=== PATIENT | female | born 1940 | race Caucasian/White ===

== ENCOUNTER 2017-01-06 15:55 | Observation (INO) | payer MEDICARE ==
[2017-01-06 16:26] LABS: #Basophils 0.1 thou/uL (0.0-0.2); #Eosinphils 0.2 thou/uL (0.0-0.7); #Lymphocytes 3.1 thou/uL (1.20-3.40); #Monocytes 0.8 thou/uL (0.11-0.59); #Neutrophils 6.3 thou/uL (1.40-6.50); %Eosinophils 1.8 % (0.0-10.0); %Lymphocytes 29.5 % (21.0-51.0); %Monocytes 7.6 % (0.0-10.0); Hematocrit 32.7 % (36.0-47.0); Mean Platelet Volume 5.9 fL (7.4-10.4); Red Blood Cell (RBC) Count 3.52 mill/uL (4.20-5.40); White Blood Cell (WBC) Count 10.5 thou/uL (4.8-10.8)
[2017-01-06 16:40] LABS: ALT (SGPT) 8 U/L (8-55); AST (SGOT) 11 U/L (5-34); Alkaline Phosphatase 75 U/L (40-150); Anion Gap 14 mmol/L (10-20); BUN (Urea Nitrogen) 48 mg/dL (9.8-20.1); Bilirubin, Total 0.5 mg/dL (0.2-1.2); Calc. Creatinine Clearance 0 mL/min (70-130); Calcium 8.8 mg/dL (7.8-10.44); Carbon Dioxide 18 mmol/L (23-31); Chloride 105 mmol/L (98-107); Estimated GFR-MDRD 23; Globulin 2.9 g/dL (2.4-3.5); Magnesium 2.3 mg/dL (1.6-2.6); Phosphorus 4.7 mg/dL (2.3-4.7); Protein, Total 6.4 g/dL (6.0-8.3)
[2017-01-06 16:44] LABS: Troponin I 0.011 ng/mL (< 0.028)
[2017-01-06 16:56] LABS: Bilirubin Negative (Negative); Blood, Urine Negative (Negative); Glucose, Urine (Dipstick) 500 mg/dL (Negative); Ketone, Urine Negative (Negative); Nitrite Negative (Negative); Protein, Urine (Dipstick) Negative (Neg-Trace); Urobilinogen 0.2 mg/dL (0.2-1.0)
[2017-01-06] MEDS ORDERED: Dextrose 50% Abboject 50 ML SYRINGE SLOW IVP SCH (17:00)
[2017-01-06] MEDS ORDERED: Dextrose 50% Abboject 50 ML SYRINGE ONE (17:15)
--- NOTE | 2017-01-06 17:49 | RAD ---
AP VIEW OF THE CHEST 01/06/17 INDICATION: History of DKA. COMPARISON: Prior chest radiograph dated 09/19/11. FINDINGS: There is a chronic appearing ununited fracture involving the left proximal humerus. There is mild ca rdiomegaly. The lungs are clear. No pleural effusion or pneumothorax evident. Chronic lung changes a re similar appearing. IMPRESSION: No definite acute cardiopulmonary abnormality. POS: H
[2017-01-06] MEDS ORDERED: HYDROcodone/Acetaminophen 5/325 mg Tablet PO PRN ×2 (21:04)
[2017-01-06] MEDS ORDERED: Ondansetron ODT 4 MG TAB SL PRN (21:04)
[2017-01-06] MEDS ORDERED: Ondansetron HCl/PF 4 MG/2 ML Vial IVP PRN (21:04)
[2017-01-06] MEDS ORDERED: Acetaminophen 325 MG TAB PO PRN (21:04)
[2017-01-06 21:50] VITALS: BMI 20.2
[2017-01-07] MEDS ORDERED: Dextrose 5% in Water 1,000 ML IV PRN (00:36)
[2017-01-07] MEDS ORDERED: Dextrose 50% Abboject 50 ML SYRINGE SLOW IVP PRN (00:36)
--- NOTE | 2017-01-07 05:57 | CON ---
NEPHROLOGY CONSULTATION NOTE DATE OF CONSULTATION: 01/06/2017 CONSULTING PHYSICIAN: Dr. Yan. REASON FOR CONSULTATION: Acute kidney injury. REASON FOR ADMISSION: Abnormal labs. HISTORY OF PRESENT ILLNESS: This is a 76-year-old lady who is a white female with history of type 2 diabetes and chronic kidney disease who came to the hospital with abnormal labs. The patient had o utpatient lab done with worsening hyperkalemia and worsening renal function and was sent to the ER a nd repeat labs also showed hyperkalemia. She has been seen here, she has been feeling better. Alize steward has been running 300s-400s lately and she was to start on insulin. She was found to have potassi um of 6, sodium of 123 and creatinine of 2.45. No fever or chills. No UTI symptoms. No chest pain or palpitation reported. PAST MEDICAL HISTORY: Positive for: 1. Type 2 diabetes. 2. CKD. 3. Hypertension. 4. Coronary disease. 5. Cardiac stent. 6. Anemia. 7. Dementia. 8. Depression. 9. Glaucoma. 10. Gastroesophageal reflux disease. 11. Hiatal hernia. 12. Diverticulitis. 13. Constipation. 14. Irritable bowel syndrome. 15. Osteoarthritis. 16. Headache. 17. Dysphagia. 18. Hearing problem. PAST SURGICAL HISTORY: Tubal ligation, coronary artery stents, EGD and colonoscopy. HOME MEDICATIONS: Aspirin, Lipitor, Plavix, Lomotil, Trulicity which was stopped recently, folic ac id, gabapentin, glipizide, levothyroxine 50 mcg daily, lisinopril, , metoprolol, omeprazole and Januvia. ALLERGIES: No known drug allergies. SOCIAL HISTORY: No smoking, alcohol or drug abuse. FAMILY HISTORY: No history of any kidney disease. REVIEW OF SYSTEMS: The following complete review of systems was negative, unless otherwise mentione d in the HPI or below: Constitutional: Weight loss or gain, ability to conduct usual activities. Skin: Rash, itching. Eyes: Double vision, pain. ENT/Mouth: Nose bleeding, neck stiffness, pain, tenderness. Cardiovascular: Palpitations, dyspnea on exertion, orthopnea. Respiratory: Shortness of breath, wheezing, cough, hemoptysis, fever or night sweats. Gastrointestinal: Poor appetite, abdominal pain, heartburn, nausea, vomiting, constipation, or diar katya. Genitourinary: Urgency, frequency, dysuria, nocturia. Musculoskeletal: Pain, swelling. Neurologic/Psychiatric: Anxiety, depression. Allergy/Immunologic: Skin rash, bleeding tendency. PHYSICAL EXAMINATION: GENERAL: This is a well-built female in no apparent distress. VITAL SIGNS: Temperature is 97.7, pulse 60, respirations 16 and blood pressure 139/55. HEENT: Atraumatic, normocephalic. Oral mucosa is dry. NECK: Supple. No masses. CARDIOVASCULAR: S1 and S2 heard. Rate and rhythm regular. RESPIRATORY: Clear. ABDOMEN: Soft. MUSCULOSKELETAL: No tenderness. No edema . DERMATOLOGIC: No skin rash. NEUROLOGIC: Alert and awake. PSYCHIATRIC: Mood and affect are normal. LABORATORY DATA: Hemoglobin is 11.1. Potassium 6.0, sodium 127 and BUN 49. Creatinine is 2.4 and baseline is around 2.1. ASSESSMENT AND PLAN: 1. Acute kidney injury, most likely from volume depletion. Continue hydration. We will check ryan l ultrasound. 2. Hyperkalemia. Limit potassium in the diet, hold lisinopril and correct glucose. 3. Hyponatremia. Correct glucose. Continue IV fluids. 4. Acidosis. No ketosis present. 5. Anemia, mild. 6. Edema, controlled. 7. Hypertension, stable. 8. Recommend IV hydration. Check renal ultrasound and follow glucose closely. Thank you for the consultation.
[2017-01-07] MEDS ORDERED: Levothyroxine Sodium 50 MCG TAB PO SCH (06:00)
[2017-01-07 06:06] LABS: #Basophils 0.1 thou/uL (0.0-0.2); #Eosinphils 0.4 thou/uL (0.0-0.7); #Lymphocytes 2.7 thou/uL (1.20-3.40); #Monocytes 0.7 thou/uL (0.11-0.59); #Neutrophils 4.3 thou/uL (1.40-6.50); %Basophils 0.9 % (0.0-1.0); %Eosinophils 5.2 % (0.0-10.0); %Lymphocytes 33.3 % (21.0-51.0); %Monocytes 8.4 % (0.0-10.0); Hematocrit 33.9 % (36.0-47.0); Mean Platelet Volume 6.3 fL (7.4-10.4); Red Blood Cell (RBC) Count 3.66 mill/uL (4.20-5.40); White Blood Cell (WBC) Count 8.2 thou/uL (4.8-10.8)
[2017-01-07 06:18] LABS: Anion Gap 15 mmol/L (10-20); BUN (Urea Nitrogen) 46 mg/dL (9.8-20.1); Calc. Creatinine Clearance 19 mL/min (70-130); Calcium 9.2 mg/dL (7.8-10.44); Carbon Dioxide 19 mmol/L (23-31); Chloride 105 mmol/L (98-107); Estimated GFR-MDRD 23
[2017-01-07] MEDS: HumaLOG 300 UNITS/3 ML VIAL SC PRN ×2 (06:42→12:26)
[2017-01-07] MEDS ORDERED: Sodium Chloride 0.9% 1,000 ML IV SCH ×2 (08:30→10:15)
--- NOTE | 2017-01-07 08:36 | PDOC.FM ---
- Subjective Subjective: Patient with no complaints this morning. Denies n/v/d, cp, sob. Afebrile, VSS - Objective MAR Reviewed: Yes Vital Signs & Weight: Vital Signs (12 hours) Temp Pulse Resp BP Pulse Ox 01/07/17 07:40 97.7 F 68 18 151/69 H 97 01/07/17 05:00 97.9 F 63 14 147/63 H 97 01/06/17 23:34 97.8 F 67 16 121/70 97 01/06/17 21:01 97.6 F 69 16 175/75 H 99 Weight Weight 50.349 kg I&O: 01/06/17 01/07/17 01/08/17 06:59 06:59 06:59 Intake Total 450 Output Total 800 Balance -350 Result Diagrams: 01/07/17 05:19 01/07/17 05:19 <Kishan Torres - Last Filed: 01/07/17 08:34> - Objective Vital Signs & Weight: Vital Signs (12 hours) Temp Pulse Resp BP Pulse Ox 01/07/17 07:40 97.7 F 68 18 151/69 H 97 01/07/17 05:00 97.9 F 63 14 147/63 H 97 01/06/17 23:34 97.8 F 67 16 121/70 97 Weight Weight 50.349 kg I&O: 01/06/17 01/07/17 01/08/17 06:59 06:59 06:59 Intake Total 450 300 Output Total 800 400 Balance -350 -100 Result Diagrams: 01/07/17 05:19 01/07/17 05:19 <Deandra Lozano - Last Filed: 01/07/17 10:02> Phys Exam - Physical Examination Constitutional: NAD Neck: no nodes, no JVD Respiratory: no wheezing, no rales, no rhonchi Cardiovascular: RRR, no significant murmur Gastrointestinal: soft, non-tender Musculoskeletal: no edema, pulses present Neurological: moves all 4 limbs Psychiatric: normal affect, A&O x 3 <Kishan Torres - Last Filed: 01/07/17 08:34> Dx/Plan (1) Hyperkalemia Code(s): E87.5 - HYPERKALEMIA Status: Acute Plan: K= 5.3 this AM Will give IVF and kayexalate and monitor response\ (2) Hyperglycemia due to type 2 diabetes mellitus Code(s): E11.65 - TYPE 2 DIABETES MELLITUS WITH HYPERGLYCEMIA Status: Acute Plan: BG found to be 540 at outside facility but corrected to 75 s/p 10u insulin Restart home meds (3) CKD (chronic kidney disease) stage 4, GFR 15-29 ml/min Code(s): N18.4 - CHRONIC KIDNEY DISEASE, STAGE 4 (SEVERE) Status: Chronic Plan: Followed by Dr. Rossi IVF (4) DMII (diabetes mellitus, type 2) Status: Chronic Plan: accuchecks qAC/HS SSI continue glipizide and saxagliptin A1C= 10 (5) Hyponatremia Code(s): E87.1 - HYPO-OSMOLALITY AND HYPONATREMIA Status: Acute Plan: Slowly improving Will start IVF this morning (6) Hypothyroidism Code(s): E03.9 - HYPOTHYROIDISM, UNSPECIFIED Status: Acute Plan: Continue synthroid (7) CAD (coronary artery disease) Code(s): I25.10 - ATHSCL HEART DISEASE OF [place] CORONARY ARTERY W/O ANG PCTRS Status: Acute Plan: continue isosorbide mononitrate (8) Normocytic anemia Code(s): D64.9 - ANEMIA, UNSPECIFIED Status: Chronic Plan: H.2 this AM (9) Hypertension Code(s): I10 - ESSENTIAL (PRIMARY) HYPERTENSION Status: Chronic Plan: continue home meds - Plan Plan: Plan: -IVF hydration -start kayexalate -monitor accuchecks and electrolyte status <Kishan Torres - Last Filed: 01/07/17 08:34> Attending Addendum - Attending Addendum I personally evaluated the patient and discussed the management with Dr. Torres on 01/07/17. I agree with the History, Examination, Assessment and Plan documented above with any addition or exceptions noted below. Blood sugars improved, will restart home medications. Potassium remains elevated, if continues to be elevated after fluid hydration this afternoon, will give dose of kayexalate. For now, hold lisinopril. <Deandra Lozano - Last Filed: 01/07/17 10:02>
[2017-01-07] MEDS ORDERED: Metoprolol Tartrate 50 MG TAB PO SCH (09:00)
[2017-01-07] MEDS ORDERED: Lisinopril 10 MG TAB PO SCH (09:00)
[2017-01-07] MEDS ORDERED: Enoxaparin Sodium 30 MG/0.3 ML SYRINGE SC SCH (09:00)
[2017-01-07] MEDS ORDERED: Clopidogrel Bisulfate 75 MG TAB PO SCH (09:00)
[2017-01-07] MEDS ORDERED: glipiZIDE 10 MG TAB PO SCH (09:00)
[2017-01-07] MEDS ORDERED: Ferrous Sulfate 325 MG TAB PO SCH (09:00)
--- NOTE | 2017-01-07 10:18 | HP-2 ---
DATE OF ADMISSION: 01/06/2017 CODE STATUS: DNR. PRIMARY CARE PHYSICIAN: Mell Troncoso MD ATTENDING: Mathieu Lechuga MD RESIDENT: Christine Gómez MD HISTORIAN: Self. CHIEF COMPLAINT: Elevated potassium. HISTORY OF PRESENT ILLNESS: This is a 76-year-old female with past medical history of type 2 diabetes, chronic kidney disease stage 4, CAD, and hypothyroidism who was transferred from [place] ED. She had seen her driving instructor yesterday and had labs drawn and was found to have elevated potassium and was told to go to the emergency room. In the ER in [place], she was found to have potassium of 6 and glucose of 540 with anion gap of 12. She other than having a headache that had started and some increased urinary frequency. Today, she had no other symptoms. She denies any chest pain, trouble breathing, muscle aches or pains. She reported she has been started on saxagliptin yesterday. In the ER in [place], she was given 10 units of insulin and then in the ER here, she was given 50 mL of D50W. PAST MEDICAL HISTORY: 1. Diabetes type 2. 2. Chronic kidney disease stage 4. 3. Osteoporosis. 4. Arthritis. 5. Broken right hip. 6. Coronary artery disease. 7. Hypothyroidism. PAST SURGICAL HISTORY: Tendon in right hip, heart stent x1. ALLERGIES: No known drug allergies. MEDICATIONS: 1. Atorvastatin 80 mg daily. 2. Vitamin D3 1000 units daily. 3. Plavix 37.5 mg daily. 4. Ferrous sulfate 325 mg daily. 5. Vascepa 2 grams b.i.d. 6. Isosorbide mononitrate 15 mg p.o. daily. 7. Synthroid 50 mcg daily. 8. Lisinopril 10 mg daily. 9. Metoprolol 50 mg b.i.d. 10. Zofran 4 mg p.o. q.4 hours p.r.n. 11. Saxagliptin 5 mg daily. 12. Glipizide 10 mg daily. FAMILY HISTORY: Son had kidney cancer. Her daughter had breast cancer. SOCIAL HISTORY: Denies tobacco, alcohol, or drug use. Son lives across the yard. REVIEW OF SYSTEMS: A 12-point review of systems was conducted and was negative except for what was mentioned in the HPI. PHYSICAL EXAMINATION: VITAL SIGNS: Blood pressure 121/85, pulse 67, respiratory rate 16, temperature 98.1, pulse ox 98% on room air, weight 54 kilograms. GENERAL: Alert, oriented x3, in no acute distress, well-nourished, appropriately interactive. EYES: Pupils equal, round, reactive to light. Extraocular muscles are intact. Conjunctivae within normal limits. ENT: Nasal mucosa and oropharynx within normal limits. NECK: Supple. No lymphadenopathy. CARDIOVASCULAR: Regular rate and rhythm, 2/6 systolic murmur. No gallops. 2+ radial and pedal pulses. RESPIRATORY: Normal effort. No retractions. Clear to auscultation bilaterally. SKIN: Warm, dry. No cyanosis or lesions. ABDOMEN: Soft, nontender to palpation, normoactive bowel sounds. No mass or distention. EXTREMITIES: No cyanosis or edema. MUSCULOSKELETAL: Structure and tone within normal. Full range of motion. NEUROLOGIC: No focal deficits. Sensation within normal limits. PSYCHIATRIC: Appropriate. LABORATORY AND IMAGING DATA: WBC 10.5, hemoglobin 11.1, hematocrit 32.7, platelets 313, MCV 92.7. Sodium 132, potassium 5.3, chloride 105, CO2 of 18, BUN 48, creatinine 2.08, GFR 23, glucose 75, anion gap 9, calcium 8.8, total protein 6.4, albumin 3.5, total bilirubin 0.5, AST 11, ALT 8, alkaline phosphatase 75, phosphorus 4.7, magnesium 2.3. Beta hydroxybutyrate 0.12, CK- MB 2.4, troponin 0.011, lipase 69. Urinalysis had glucose of 500, otherwise negative. Chest x-ray showed mild cardiomegaly, no acute abnormality. ASSESSMENT AND PLAN: A 76-year-old female who presents with: 1. Hyperosmolar hyperglycemic state. Glucose initially elevated at 540 at outside ED with anion gap of 12. No ketones. Potassium is 6.0 initially. Status post 10 units of insulin, glucose 75 in ED here, got 50 mL of D50W. We will check Accu-Cheks q.6 hours in a.c. and at bedtime once stabilized. We will hold on saxagliptin. We will give sliding scale insulin, diabetic diet. 2. Hyperkalemia. Potassium is 6.0 initially, now decreased to 5.3, status post insulin. We will recheck BMP in a.m. No signs of hyperkalemia on EKG. 3. Chronic kidney disease stage 4 at baseline. We will monitor. 4. Diabetes type 2. Accu-Cheks q.6 hours. Sliding scale insulin. Hold saxagliptin. 5. Hyponatremia. We will encourage p.o. intake, got fluids in the ED. We will give fluids and recheck in a.m. 6. Normocytic anemia likely secondary to chronic kidney disease. This is chronic, stable and we will monitor. 7. Coronary artery disease. No active chest pain. Continue her medications. 8. Hypothyroidism. Continue home medications. 9. Venous thromboembolism prophylaxis. Lovenox. DISPOSITION: Observe on medical. Symptomatic medication will be provided. History and physical exam as well as management were discussed with Dr. Lechuga. AMARA
[2017-01-07 11:32] LABS: Anion Gap 11 mmol/L (-14-95); T. Carbon Dioxide 21.3 mmol/L (1.0-85.0); vO2 Saturation-calc 64.2 % (0.0-100.0)
[2017-01-07 16:09] LABS: Anion Gap 17 mmol/L (10-20); BUN (Urea Nitrogen) 37 mg/dL (9.8-20.1); Calc. Creatinine Clearance 18 mL/min (70-130); Calcium 8.4 mg/dL (7.8-10.44); Carbon Dioxide 18 mmol/L (23-31); Chloride 103 mmol/L (98-107); Estimated GFR-MDRD 22
[2017-01-07 16:36] VITALS: BP 147/68; TEMP 98.2
[2017-01-07] MEDS ORDERED: Atorvastatin Calcium 40 MG TAB PO SCH (21:00)
--- NOTE | 2017-01-07 21:38 | PRG ---
DATE OF SERVICE: 01/07/2017 SUBJECTIVE: Patient was seen and examined at bedside and overnight events noted. Patient denies an y shortness of breath or chest pain or palpitation. No history of Nausea or vomiting or diarrhea or fever or chills or cramps. OBJECTIVE: GENERAL: This is an elderly female in no apparent distress. VITAL SIGNS: Temperature 97.2, pulse 67, respirations , blood pressure 147/68. HEENT: Atraumatic, normocephalic, oral mucosa is moist. NECK: Supple. CARDIOVASCULAR: S1, S2 heard, rate and rhythm regular. RESPIRATORY: Clear to auscultation. GASTROINTESTINAL: Abdomen is soft. MUSCULOSKELETAL: No tenderness, no edema. DERMATOLOGIC: No skin rash. NEUROLOGIC: Alert and awake and oriented x3, no focal neurologic deficits. Moving all the extremit ies. PSYCHIATRIC: Mood and affect normal. LABORATORY DATA: Potassium is 4.9, BUN is 37, creatinine is 2.1. ASSESSMENT AND PLAN: 1. Acute kidney injury secondary to volume depletion. We will start her on IV fluids slowly and re check labs, renal ultrasound with no obstruction. 2. Hyperkalemia, much better. 3. Hyperglycemia, type 2 diabetes. 4. Edema, controlled. Plan is to start her on IV fluids and we will follow.
--- NOTE | 2017-01-08 05:40 | DIS-2 ---
DATE OF ADMISSION: 01/06/2017 DATE OF DISCHARGE: 01/07/2017 RESIDENT PHYSICIAN: Kishan Torres M.D. ADMITTING ATTENDING: Mathieu Lechuga M.D. DISCHARGE ATTENDING: Deandra Lozano D.O. CONSULTS: None. PROCEDURES: None. PRIMARY DIAGNOSES: 1. Hyperkalemia. 2. Hyperglycemia. 3. Hypernatremia. SECONDARY DIAGNOSES: 1. Chronic kidney disease stage 4. 2. Diabetes type 2. 3. Normocytic anemia. 4. Coronary artery disease. 5. Hypothyroidism. DISCHARGE MEDICATIONS: 1. Atorvastatin 80 mg p.o. daily. 2. Levothyroxine 50 mcg p.o. daily. 3. Vascepa 2 grams p.o. b.i.d. 4. Metoprolol tartrate 50 mg p.o. b.i.d. 5. Glipizide 10 mg p.o. daily. 6. Saxagliptin 5 mg p.o. daily. 7. Imdur 15 mg p.o. daily. 8. Ferrous sulfate 325 mg p.o. daily. 9. Ondansetron 4 mg p.o. q. 4 hours. 10. Plavix 75 mg daily. 11. Vitamin D3 1000 units p.o. daily. DISCONTINUED MEDICATIONS: Lisinopril 10 mg daily. HISTORY OF PRESENT ILLNESS/HOSPITAL COURSE: A 76-year-old female presenting at outside facility with hyperglycemia and hyperkalemia. She was seen at outside facility and transferred to [place] ER for a higher level of care. Patient was evaluated in [place] ED and found to have glucose of 500 and potassium of 6. She was given 10u of insulin and transferred. Labs drawn at [place] showed a glucose of 75 and potassium of 5.3. Upon admission, she denied any chest pain, trouble breathing, muscle aches, joint pain, or rash. She had recently started a new diabetes medication, saxagliptin. She did not have an anion gap and was asymptomatic. The patient was given fluids and monitored overnight. She remained asymptomatic and her potassium corrected to 4.9. Glucose remained normal through her admission. Her hemoglobin A1c was found to be 10. All of her home medications were restarted except for lisinopril which was held due to her poor kidney function. Creatinine was found to be 2.08 upon admission and did not improve with fluids. The patient was counseled extensively about close followup upon discharge. She will be calling her entry level marketing representative and her band teacher first thing in the morning and scheduling follow up appointments for as soon as possible. With her hyperglycemia and hypernatremia resolving, we are comfortable sending her home at this time which is likely the patient's baseline kidney function with a creatinine of 2 considering her other comorbidities. DISPOSITION: Stable. DISCHARGE INSTRUCTIONS: 1. Location: Home. 2. Diet: consistent carbohydrate. 3. Activity: As tolerated. 4. Follow up with Dr. Troncoso in 7-10 days. With band teacher in 2-3 days. With entry level marketing representative in 2-3 days. MTDD
[2017-01-08 14:27] LABS: Folate,Hemolysate 534.1 ng/mL (Not Estab.); Hematocrit 33.8 % (34.0-46.6); RBC Folate Test Component 1580 ng/mL (>498)
== END 2017-01-07 18:50 | disposition home or self-care (01) ==
LOC: ERS 15:55 → 2SW 19:37
PROVIDERS: ADMIT Family Medicine; ATTEND Family Medicine
DX: E87.5 Hyperkalemia (principal); E11.65 Type 2 diabetes mellitus with hyperglycemia; E87.0 Hyperosmolality and hypernatremia; E11.22 Type 2 diabetes mellitus with diabetic chronic kidney disease; N18.4 Chronic kidney disease, stage 4 (severe); D64.9 Anemia, unspecified; I25.10 Atherosclerotic heart disease of native coronary artery without angina pectoris; E03.9 Hypothyroidism, unspecified; N17.9 Acute kidney failure, unspecified; R60.9 Edema, unspecified; E86.9 Volume depletion, unspecified; M81.0 Age-related osteoporosis without current pathological fracture; M19.90 Unspecified osteoarthritis, unspecified site; E11.00 Type 2 diabetes mellitus with hyperosmolarity without nonketotic hyperglycemic-hyperosmolar coma (NKHHC); F32.9 Major depressive disorder, single episode, unspecified; F41.9 Anxiety disorder, unspecified; F03.90 Unspecified dementia, unspecified severity, without behavioral disturbance, psychotic disturbance, mood disturbance, and anxiety; H40.9 Unspecified glaucoma; K58.1 Irritable bowel syndrome with constipation; Z66 Do not resuscitate; Z79.84 Long term (current) use of oral hypoglycemic drugs; Z79.02 Long term (current) use of antithrombotics/antiplatelets; Z79.899 Other long term (current) drug therapy; Z98.51 Tubal ligation status; Z95.818 Presence of other cardiac implants and grafts; Z98.890 Other specified postprocedural states
CPT/HCPCS: 71010; 80048 ×2; 80053; 81003; 82010; 82330; 82435; 82553; 82607; 82747; 82803; 82962 ×2; 83036; 83690; 83735; 84100; 84132; 84295; 84443; 84484; 85014 ×2; 85025 ×2; 93005; 96360; 96361; 96372; 96374; 99285; G0378; 36415; 36416; A4216; J1650

== ENCOUNTER 2020-01-03 12:57 | Outpatient (CLI) | payer MEDICARE ==
--- NOTE | 2020-01-03 14:46 | ULT ---
ULTRASOUND RETROPERITONEUM COMPLETE: (RENAL) 01/03/20 HISTORY: 79-year-old female with chronic kidney disease, stage IV, N18.4; and Back pain, M54.5. FINDINGS: Bilateral renal parenchyma is diffusely thin. The renal parenchymal echogenicity is also diffusely mi ldly increased. There is no hydronephrosis. There is somewhat poor visualization of bilateral parenchyma. No gross urinary bladder abnormality identified. Right kidney is 9.5 x 4.5 x 4.5 cm. Left kidney is 11 x 7 x 5 cm. IMPRESSION: 1. evidence for chronic medical renal disease. 2. No hydronephrosis. RICK Harman POS: [facility]
== END 2020-01-03 12:58 | disposition home or self-care (01) ==
LOC: BICULT 12:57
PROVIDERS: ATTEND Internal Medicine Nephrology
DX: N18.4 Chronic kidney disease, stage 4 (severe) (principal); M54.9 Dorsalgia, unspecified
CPT/HCPCS: 76770